=== PATIENT | female | born 1975 | race Caucasian/White ===

== ENCOUNTER 2021-01-20 07:52 | Emergency (ER) | payer OTHER ==
[~2021-01-20] VITALS: Ht 170.2 cm; Wt 59.0 kg
[2021-01-20] MEDS ORDERED: EFFEXOR XR75 MG PO (08:05)
[2021-01-20] MEDS ORDERED: EFFEXOR XR150 MG PO (08:05)
== END 2021-01-20 11:48 | disposition home or self-care (01) ==
LOC: ER 07:52
DX: S01.82XA Laceration with foreign body of other part of head, initial encounter (principal); V49.9XXA Car occupant (driver) (passenger) injured in unspecified traffic accident, initial encounter; Y93.89 Activity, other specified; Y92.488 Other paved roadways as the place of occurrence of the external cause; Y99.8 Other external cause status
CPT/HCPCS: G0168; 70450

== ENCOUNTER 2021-02-20 02:47 | Emergency (ER) | payer OTHER ==
[~2021-02-20] VITALS: Ht 170.2 cm; Wt 59.0 kg
[~2021-02-20 02:47] MED LIST: EFFEXOR XR150 MG PO; EFFEXOR XR75 MG PO
[2021-02-20] MEDS ORDERED: CLONAZEPAM1 MG (02:54)
[2021-02-20] MEDS ORDERED: CYMBALTA60 MG (02:54)
[2021-02-20] MEDS ORDERED: BUSPIRONE HCL10 MG (02:54)
[2021-02-20] MEDS ORDERED: PEPCID AC20 MG PO (14:46)
[2021-02-20] MEDS ORDERED: INTESTINEX680 M1 PO (14:46)
[2021-02-20] MEDS ORDERED: PHENERGAN25 MG PO (14:46)
== END 2021-02-20 17:08 | disposition home or self-care (01) ==
LOC: ER 02:47
DX: K29.00 Acute gastritis without bleeding (principal)